=== PATIENT | female | born 1985 ===

== ENCOUNTER 2018-03-14 19:31 | Emergency (ER) | payer BC ==
[2018-03-14 20:05] VITALS: TEMP 99.8; O2SAT 97
[2018-03-14] MEDS ORDERED: Lidocaine 2% w Epi 1:100,000 Inj IJ ONE (20:38)
[2018-03-14] MEDS ORDERED: Lidocaine 1% w Epi 1:100,000 Inj ONE (20:40)
--- NOTE | 2018-03-14 21:21 | ED PDOC ---
HPI: Skin/Bite Injury Time Seen by Provider: 03/14/18 20:17 Chief Complaint (Nursing): Back Pain History Per: Patient History/Exam Limitations: no limitations Onset/Duration Of Symptoms: Days Additional Complaint(s): No PMHx presenting with lower back/upper buttock pain since last Monday, thought it was due to sitting in an uncomfortable position and then standing afterwards, states she has more pain on the R lower back/upper buttock than left and also subjective fevers and chills. Went to a chiropractor and followed recommendations of icing without any relief. Past Medical History Reviewed: Historical Data, Nursing Documentation, Vital Signs Vital Signs: Last Vital Signs Temp 99.8 F H 03/14/18 20:00 Pulse 124 H 03/14/18 20:00 Resp 20 03/14/18 20:00 BP 108/76 03/14/18 20:00 Pulse Ox 97 03/14/18 20:00 - Medical History PMH: No Chronic Diseases - Surgical History Surgical History: No Surg Hx - Family History Family History: States: Unknown Family Hx - Home Medications Home Medications: Ambulatory Orders Medication Instructions Recorded Clindamycin [Cleocin] 300 mg PO TID 10 Days cap 03/14/18 Ibuprofen [Motrin Tab] 600 mg PO Q6 #30 tab 03/14/18 - Allergies Allergies/Adverse Reactions: Allergies Allergy/AdvReac Type Severity Reaction Status Date / Time No Known Allergies Allergy Verified 03/14/18 20:00 Review of Systems ROS Statement: Except As Marked, All Systems Reviewed And Found Negative Musculoskeletal: Positive for: Back Pain Physical Exam - Reviewed Nursing Documentation Reviewed: Yes Vital Signs Reviewed: Yes - Physical Exam Appears: Positive for: Well, Non-toxic, No Acute Distress Head Exam: Positive for: ATRAUMATIC, NORMAL INSPECTION, NORMOCEPHALIC Back: Positive for: Normal Inspection, Other (4x5cm fluctuant pilonidal abscess with minimal surrounding erythema). Negative for: Vertebral Tenderness, Decreased ROM, Muscle Spasm - ECG O2 Sat by Pulse Oximetry: 97 Pulse Ox Interpretation: Normal Medical Decision Making Medical Decision Making: Patient presenting with pilonidal abscess -Patient was givne NO2 with pulse ox monitoring -Lido given -I&D performed with packing -Instructed to return in 2 days for wound check -Well appearing upon discharge Disposition - Clinical Impression Clinical Impression: Pilonidal cyst - Disposition Referrals: Rashad [facility] [Outside] Disposition Time: 21:23 Condition: STABLE Additional Instructions: PLEASE RETURN IN TWO DAYS FOR A WOUND CHECK. Prescriptions: Clindamycin [Cleocin] 300 mg PO TID 10 Days cap Ibuprofen [Motrin Tab] 600 mg PO Q6 #30 tab Instructions: Pilonidal Cyst, Abscess Incision and Drainage Forms: Rashad Meier ([place]), [facility] ED School/Work Excuse - Incision & Drainage Of Abscess Anesthesia: Lidocaine 1%, With Epi Used During Procedure: Continuous Pulse Oximetry Prep Used: Sterile Water Procedure: Incised W/Scalpel Blade#: (10), Drained Pus, Probed To Break Up Loculations, Packed W/Gauze, Cultures Obtained And Sent To Lab
[2018-03-14 21:41] VITALS: RESP 18
[2018-03-14 21:45] VITALS: BP 102/48; PULSE 98
== END 2018-03-14 21:55 | disposition home or self-care (01) ==
LOC: H.ER 19:31
DX: L02.212 Cutaneous abscess of back [any part, except buttock and flank] (principal)

== ENCOUNTER 2018-03-16 14:25 | Emergency (ER) | payer BC ==
[2018-03-16 14:36] VITALS: BP 123/77; PULSE 87; RESP 16; TEMP 98.5; O2SAT 99
--- NOTE | 2018-03-16 14:56 | ED PDOC ---
HPI: Wound Care - HPI Time Seen by Provider: 03/16/18 14:49 Chief Complaint (Nursing): Wound Check Chief Complaint (Provider): packing removal History Per: Patient Exam Limitations: no limitations Onset/Duration Of Symptoms: Days (7x days ago) Current Symptoms Are (Timing): Better Additional Complaint(s): 33 year old female with no pertinent past medical history presents to the ED for a wound check. Patient states she was seen in the ED 2x days for I&D of pilonidal cyst and she returns today for packing removal. Patient states pain to affected area is better and she denies any active drainage. PMD: None Past Medical History Reviewed: Historical Data, Nursing Documentation, Vital Signs Vital Signs: Last Vital Signs Temp 98.5 F 03/16/18 14:34 Pulse 87 03/16/18 14:34 Resp 16 03/16/18 14:34 BP 123/77 03/16/18 14:34 Pulse Ox 99 03/16/18 14:34 - Medical History PMH: No Chronic Diseases - Surgical History Surgical History: No Surg Hx - Family History Family History: States: No Known Family Hx - Living Arrangements Living Arrangements: With Family - Social History Current smoker - smoking cessation education provided: No Alcohol: None Drugs: Denies - Home Medications Home Medications: Ambulatory Orders Medication Instructions Recorded Clindamycin [Cleocin] 300 mg PO TID 10 Days cap 03/14/18 Ibuprofen [Motrin Tab] 600 mg PO Q6 #30 tab 03/14/18 - Allergies Allergies/Adverse Reactions: Allergies Allergy/AdvReac Type Severity Reaction Status Date / Time No Known Allergies Allergy Verified 03/16/18 14:33 Review of Systems ROS Statement: Except As Marked, All Systems Reviewed And Found Negative Constitutional: Negative for: Fever Skin: Positive for: Other (packing removal pilonidal cyst) Physical Exam - Reviewed Nursing Documentation Reviewed: Yes Vital Signs Reviewed: Yes - Physical Exam Appears: Positive for: Well, Non-toxic, No Acute Distress Head Exam: Positive for: ATRAUMATIC, NORMOCEPHALIC Skin: Positive for: Normal Color. Negative for: Rash Eye Exam: Positive for: Normal appearance Back: Positive for: Other (packing in place to pilonidal abscess. minimal drainage. (-) induration, (-) erythema.) Neurologic/Psych: Positive for: Alert, Oriented (3x) - ECG O2 Sat by Pulse Oximetry: 99 (RA) Pulse Ox Interpretation: Normal Medical Decision Making Medical Decision Makin:49 Initial impression: 33 year old female in the ED for a wound check. Plan: Removed packing from pilonidal abscess without difficulty. Instructed patient to continue with prescribed antibiotics and to follow up with surgeon if symptoms persist. Also advised sitz baths with epsom salts. Surgery referral provided. Scribe Attestation: Documented by Marcy Sotomayor, acting as a scribe for Janine De Guzman PA-C. Provider Scribe Attestation: All medical record entries made by the Scribe were at my direction and personally dictated by me. I have reviewed the chart and agree that the record accurately reflects my personal performance of the history, physical exam, medical decision making, and the department course for this patient. I have also personally directed, reviewed, and agree with the discharge instructions and disposition. Disposition - Clinical Impression Clinical Impression: Pilonidal cyst - Patient ED Disposition Is Patient to be Admitted: No Counseled Patient/Family Regarding: Diagnosis, Need For Followup - Disposition Referrals: Laury Santana MD [Staff Provider] - Disposition: Routine/Home Disposition Time: 15:09 Condition: STABLE Additional Instructions: Apply sitz baths with Epsom salts often as possible to affected area. Continue prescribed medications. If symptoms persist follow-up with surgeon. Instructions: Pilonidal Cyst Forms: [employer] ([place]), nap- Naturally Attached Parents ED School/Work Excuse
== END 2018-03-16 15:30 | disposition home or self-care (01) ==
LOC: H.ER 14:25
DX: Z48.00 Encounter for change or removal of nonsurgical wound dressing (principal); L05.91 Pilonidal cyst without abscess